=== PATIENT | male | born 1990 | race African-American/Black ===

== ENCOUNTER 2020-08-25 18:20 | Emergency (ER) | payer SELFPAY ==
[~2020-08-25] VITALS: Ht 182.9 cm; Wt 82.0 kg
[2020-08-25 18:32] VITALS: BP 144/82
[2020-08-25] MEDS ORDERED: IBUPROFEN 600MG TABLET PO STA (19:17)
[2020-08-25] MEDS ORDERED: IBUP-2029 MT (20:31)
[2020-08-25] MEDS ORDERED: CYCL10TA7 MT (20:31)
== END 2020-08-25 20:46 | disposition home or self-care (01) ==
LOC: ER 18:20
DX: S20.219A Contusion of unspecified front wall of thorax, initial encounter (principal); S40.022A Contusion of left upper arm, initial encounter; S70.02XA Contusion of left hip, initial encounter; V49.49XA Driver injured in collision with other motor vehicles in traffic accident, initial encounter; Y93.89 Activity, other specified; Y92.488 Other paved roadways as the place of occurrence of the external cause; R03.0 Elevated blood-pressure reading, without diagnosis of hypertension
CPT/HCPCS: 71045; 73060; 73502; 99284

== ENCOUNTER 2021-08-07 04:07 | Emergency (ER) | payer SELFPAY ==
[~2021-08-07] VITALS: Ht 182.9 cm; Wt 79.0 kg
[~2021-08-07 04:07] MED LIST: CYCL10TA7 MT; IBUP-2029 MT
[2021-08-07 04:50] VITALS: BP 152/98
== END 2021-08-07 05:01 ==
LOC: ER 04:07
DX: S01.81XA Laceration without foreign body of other part of head, initial encounter (principal); W22.8XXA Striking against or struck by other objects, initial encounter; Y93.89 Activity, other specified; Y92.89 Other specified places as the place of occurrence of the external cause; Y99.8 Other external cause status
CPT/HCPCS: 12011; 99283